=== PATIENT | male | born 1985 | race Caucasian/White ===

== ENCOUNTER 2021-11-27 12:40 | Outpatient (CLI) | payer MEDICAID, SELFPAY ==
[2021-11-27 13:40] LABS: Basophils % 0.5 %; Eosinophils # 0.1 10^3/uL (0.0-0.8); Eosinophils % 0.9 %; Hematocrit 40.4 % (42.0-52.0); Hemoglobin 13.3 g/dL (11.7-16.6); Lymphocytes # 1.5 10^3/uL (0.8-4.8); Mean Corpuscular HGB Conc 32.9 g/dL (30.0-36.0); Mean Corpuscular Volume 91.2 fl (80-94); Mean Platelet Volume 10.5 fL (7.4-10.4); Monocytes # 0.4 10^3/uL (0.2-0.9); Monocytes % 6.9 %; Neutrophils # 4.28 10^3/uL (1.8-7.7); Neutrophils % 67.5 %; Nucleated Red Blood Cells % 0 %; Platelet Count 268 10^3/cmm (130-400); Red Blood Count 4.43 10^6/uL (4.1-5.3); Red Cell Distribution Width 12.8 % (12.1-15.1); White Blood Count 6.3 10^3/uL (4.0-10.0)
[2021-11-27 14:10] LABS: Alanine Aminotransferase 29 U/L (0-41); Albumin Level 4.4 g/dL (3.5-5.2); Alkaline Phosphatase 90 IU/L (40-130); Anion Gap 12.7 (5-19); Aspartate Amino Transferase 21 U/L (0-40); Blood Urea Nitrogen 13 mg/dL (6-20); Calcium 9.7 mg/dL (8.5-10.5); Carbon Dioxide 29 mmol/L (22-29); Chloride 102 mmol/L (98-107); Chol HDL Ratio 2.53 mg/dL (1.0-5.00); Cholesterol 149 mg/dL (0-200); Globulin 3.1 g/dL (1.3-4.6); Glomerular Filtration Rate 186.1 mL/min (90-130); Glucose 92 mg/dL (65-115); HDL Cholesterol 59 mg/dL (60-100); LDL Cholesterol Calculated 75 mg/dL (50-129); LDL HDL Ratio 1.27 RATIO (0.00-3.22); Osmolality Calculated 288 mOsm/kg (285-295); Potassium 4.7 mmol/L (3.5-5.1); Sodium 139 mmol/L (136-145); Total Bilirubin 0.3 mg/dL (0.15-1.2); Total Protein 7.5 g/dL (6.6-8.7); Triglycerides 74 mg/dL (0-150)
[2021-11-27 14:14] LABS: Hepatitis C Virus Antibody Reactive (Nonreactive)
[2021-11-27 14:49] LABS: HIV 1 & 2 Antibody Non-Reactive (Non-Reactiv); HIV 1 & 2 Antigen Non-Reactive (Non-Reactiv)
[2021-11-28 19:17] LABS: HEP C RNA Viral Load Quant 357000 IU/mL (NOT DETECTED); HEP C RNA Viral Load Quant 5.55 Log IU/mL (NOT DETECTED)
== END 2021-11-27 12:41 | disposition home or self-care (01) ==
LOC: LAB 12:42
PROVIDERS: Visit Provider Family Medicine
DX: Z76.89 Persons encountering health services in other specified circumstances (principal); F41.1 Generalized anxiety disorder; G40.909 Epilepsy, unspecified, not intractable, without status epilepticus; G47.00 Insomnia, unspecified; J45.20 Mild intermittent asthma, uncomplicated; Z86.73 Personal history of transient ischemic attack (TIA), and cerebral infarction without residual deficits
CPT/HCPCS: 36415; 80053; 80061; 84443; 85025; 86803; 87522; 87806

== ENCOUNTER → 2021-12-18 15:49 | Outpatient (BNVA) | payer MEDICAID, SELFPAY | PROVIDERS: Visit Provider Internal Medicine | DX: B19.20 Unspecified viral hepatitis C without hepatic coma (principal) | CPT/HCPCS: 82105; 86705; 86706; 87340; 87902 ==

== ENCOUNTER 2021-12-30 09:31 | Outpatient (CLI) | payer MEDICAID, SELFPAY ==
--- NOTE | 2021-12-30 09:30 | US_ITS ---
WS: [id number] RIGHT UPPER QUADRANT ULTRASOUND HISTORY: Hepatitis C. COMPARISON: None available. Liver: 12.6 cm in length. Liver is not enlarged. There is very mild nodularity beginning along the rosenbaum rface of the liver. No intrahepatic mass identified. Portal Vein: Portal vein is dilated. At the confluence of the main portal vein with the proximal LEFT and RIGHT portal veins is a dilatation measuring 2.0 cm. Consistent with a mild portal vein aneurysm . No thrombosis. Normal hepatopetal flow. Gallbladder: Contracted gallbladder with diffuse wall thickening. Patient was not nothing by mouth fo r this examination. CBD: 0.4 cm Pancreas: Normal size and echogenicity. Right kidney: 9.9 cm in length. Normal size and echogenicity. No hydronephrosis or mass. Aorta and IVC: Unremarkable abdominal aorta and IVC. No ascites. US/US liver [id number] IMPRESSION: 1. Contracted gallbladder due to nonfasting. 2. Mild early surface nodularity along the surface of the liver can be seen wi th early cirrhosis. 3. Aneurysmal portal vein measures 2.0 cm. Typically portal vein aneurysms are asymptomatic but can thrombose. If further evaluation is thought necessary cli nically CT evaluation with contrast of the liver could be obtained.
== END 2021-12-30 09:32 | disposition home or self-care (01) ==
LOC: RAD 09:33
PROVIDERS: Visit Provider Internal Medicine
DX: B19.20 Unspecified viral hepatitis C without hepatic coma (principal); I72.8 Aneurysm of other specified arteries
CPT/HCPCS: 76705

== ENCOUNTER 2023-04-19 09:03 | Outpatient (CLI) | payer MEDICAID, SELFPAY | END 2023-04-19 09:04 | disposition home or self-care (01) | LOC: LAB 09:04 | PROVIDERS: PCP Nurse Practitioner Primary Care; Visit Provider Nurse Practitioner Primary Care | DX: M00.9 Pyogenic arthritis, unspecified (principal) | CPT/HCPCS: 85025 ==